=== PATIENT | female | born 1995 | race Native Hawaiian/Other Pacific Islander ===

== ENCOUNTER 2017-11-03 19:20 | Emergency (ER) | payer OTHER ==
[2017-11-03 19:22] VITALS: BP 138/75; PULSE 108; RESP 17; TEMP 98.5; O2SAT 98
[2017-11-03] MEDS ORDERED: Oxycodone/Acetaminophen 5/325 mg Tab PO STA (19:32)
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
== END 2017-11-03 21:34 | disposition home or self-care (01) ==
LOC: H.ER 19:20
DX: S02.2XXA Fracture of nasal bones, initial encounter for closed fracture (principal); S09.90XA Unspecified injury of head, initial encounter; Y04.0XXA Assault by unarmed brawl or fight, initial encounter; F17.200 Nicotine dependence, unspecified, uncomplicated; Z23 Encounter for immunization